=== PATIENT | male | born 1965 | race Hispanic/Latino ===

== ENCOUNTER → 2019-02-11 | Day surgery (SDC) | payer OTHER ==
[~2019-02-11] MED LIST: BUPIVACAINE HCL 0.5% INJ 30 ML VIAL INJ ONE; CEFAZOLIN SOD 1 GM/NS 50ML 100 ML IV ONE; CELEBREX100 MG PO; DEXAMETHASONE SOD PHOS INJ 4 MG/ML VIAL ONE; FENTANYL CITRATE/PF 100MCG/2 ML INJ ONE; KETOROLAC TROMETHAMINE 30 MG/ML VIAL ONE; LIDOCAINE HCL 2% LOCAL INJ 5 ML SDV VIAL INJ ONE; MIDAZOLAM HCL 2 MG/2 ML VIAL ONE; ONDANSETRON HCL INJ 2MG/ML 2ML 2 MG/ML VIAL ONE; PROPOFOL IV EMULSION 10 MG/ML 20 ML VIAL ONE; SEVOFLURANE INHAL SOLN 250 ML PEN BTL ONE
[2019-02-11 15:40] VITALS: BP 140/81
--- NOTE | 2019-02-11 20:42 | Operative Report ---
DATE OF PROCEDURE: 02/11/2019 SURGEON: Farshad Morrow MD PREOPERATIVE DIAGNOSIS: Right shoulder lipoma. POSTOPERATIVE DIAGNOSIS: Right shoulder lipoma. PROCEDURE PERFORMED: Removal of right shoulder lipoma. HEAD DOFFER: There was no autopsy assistant. ANESTHESIA: General endotracheal intubation anesthesia. IV FLUIDS: As per the anesthesia record. DESCRIPTION OF PROCEDURE: Mr. Portillo was taken to the operating room and placed in supine position on the operating table. Following the induction of general anesthesia as well as endotracheal intubation, the patient's right upper extremity was examined under anesthesia. He was found to have a palpable subcutaneous mass overlying the AC joint on the right. The patient had full passive range of motion of the shoulder joint. The patient had undergone an MRI examination of the shoulder approximately a year ago and identified a lipoma in the subcutaneous tissues. He was scheduled for excision of his lipoma. Following induction of general anesthesia, the operating room table was converted to a beach chair type position. The patient's right upper extremity was then prepped and draped in standard surgical fashion. The case began by creating an incision directly over the lipoma. This incision was carried through the skin only. Blunt dissection was used to penetrate the subcutaneous tissues. The lipoma was easily identified in the subcutaneous tissues. Gentle dissection was carried circumferentially about the lipoma and the lipoma was easily removed from the subcutaneous tissues. The wound was copiously irrigated. Hemostasis was obtained prior to closing the patient's surgical incision. The wound was copiously irrigated with bacitracin laden normal saline. The incision was then closed in a multilayer fashion. Sterile dressings were applied. The patient was provided a sling, awakened, and taken to the postanesthesia care unit in stable condition. Farshad Morrow MD EBR/MODL /[id number]
== END | disposition home or self-care (01) ==
LOC: OR 11:26
PROVIDERS: ATTEND Specialist
DX: D17.21 Benign lipomatous neoplasm of skin and subcutaneous tissue of right arm (principal); M19.011 Primary osteoarthritis, right shoulder; M75.121 Complete rotator cuff tear or rupture of right shoulder, not specified as traumatic; Z68.36 Body mass index [BMI] 36.0-36.9, adult
CPT/HCPCS: 11406; 12032; 88304; 93005; J0690; J1100; J1885; J2001; J2250; J2405; J2704; J3010